=== PATIENT | male | born 1985 | race Two or more races ===

== ENCOUNTER 2017-07-08 12:47 | Emergency (ER) | payer BC ==
[~2017-07-08] VITALS: Ht 188 cm; Wt 77.0 kg
[2017-07-08 13:03] VITALS: BP 132/81
[2017-07-08 14:52] LABS: CLARITY URINE CLEAR (CLEAR); COLOR URINE YELLOW (YELLOW); KETONES URINE TRACE (NEGATIVE); LEUKOCYTE ESTERASE URINE 3+ (NEGATIVE); NITRITE URINE NEGATIVE (NEGATIVE); OCCULT BLOOD URINE TRACE (NEGATIVE); PROTEIN URINE NEGATIVE (NEGATIVE); UROBILINOGEN URINE 0.2 E.U./dL (0.2-1.0)
[2017-07-08] MEDS ORDERED: CEFTRIAXONE SODIUM 250 MG/VIAL IM ONE (15:15)
[2017-07-08] MEDS ORDERED: AZITHROMYCIN 500 MG TABLET PO ONE (15:15)
[2017-07-11 04:15] LABS: CHLAMYDIA TRACHOMATIS NAA Negative (Negative); NEISSERIA GONORRHOEAE NAA Positive (Negative)
== END 2017-07-08 15:57 | disposition home or self-care (01) ==
LOC: ER 15:01
DX: R36.9 Urethral discharge, unspecified (principal); R30.0 Dysuria; Z20.2 Contact with and (suspected) exposure to infections with a predominantly sexual mode of transmission; F14.10 Cocaine abuse, uncomplicated
CPT/HCPCS: 81001; 87491; 87591; 96372; 99284; J0696